=== PATIENT | female | born 1955 | race Caucasian/White ===

== ENCOUNTER → 2019-10-10 | Outpatient (CLI) | payer BC ==
--- NOTE | 2019-10-10 15:04 | KCIC ---
BRAIN W/O CONTRAST History:Reason: HEADACHES, PRE-SYNCOPE / Spl. Instructions: / History: Hx of headaches for 2 yrs., patient passes out, hypotension. Technique: Multiplanar, multi sequential MR imaging was performed of the brain without contrast. Comparison: None Findings: No acute infarct. No intracranial hemorrhage. No mass effect. No hydrocephalus. Several FLAIR hyperintense foci within the hemispheric white matter, likely within normal range for age or related to sequelae of chronic microvascular ischemia. Right superior frontal extra-axial calcified lesion measures 0.8 cm (series 9 image 14). Imaged orbits are unremarkable. Imaged paranasal sinuses and mastoid air cells are clear. Impression: 1. No acute intracranial abnormality. 2. Right superior frontal extra-axial calcified lesion, likely meningioma. Electronically signed by: Rashard Woods DO (10/10/2019 3:01 PM) [id number]
== END ==
LOC: KCIC MRI 12:54
PROVIDERS: ATTEND Physician Assistant Medical
DX: G93.89 Other specified disorders of brain (principal)
CPT/HCPCS: 70551